=== PATIENT | female | born 1995 | race Hispanic/Latino ===

== ENCOUNTER 2016-07-17 13:29 | Emergency (ER) | payer OTHER ==
[~2016-07-17] VITALS: Ht 170.2 cm; Wt 114.6 kg
[2016-07-17 13:38] VITALS: BP 150/98
[2016-07-17] MEDS ORDERED: ATARAX,VISTARIL25 MG PO (21:33)
== END 2016-07-17 16:38 | disposition home or self-care (01) ==
LOC: EME 13:29
PROC: 3E0234Z Introduction of Serum, Toxoid and Vaccine into Muscle, Percutaneous Approach (ICD-10-PCS; principal; 2016-07-17)
DX: H18.822 Corneal disorder due to contact lens, left eye (principal); H11.32 Conjunctival hemorrhage, left eye; Z23 Encounter for immunization
CPT/HCPCS: 99281; 99284

== ENCOUNTER 2016-07-17 19:46 | Emergency (ER) | payer OTHER ==
[~2016-07-17] VITALS: Ht 167.6 cm; Wt 114.1 kg
[2016-07-17] MEDS ORDERED: ATARAX,VISTARIL25 MG PO (21:33)
[2016-07-17 21:50] LABS: HEMATOCRIT 38.7 % (36.0-46.0); MCH 27.1 PG (29.0-34.0); MCHC 32.3 G/DL (30.0-36.0); MCV 83.9 FL (83-99); MEAN PLAT.VOLUME 8.4 uM^3 (9.5-12.4); PLATELET COUNT 494 K/uL (156-360); RBC DIS.WIDTH-CV 13.2 % (11.8-14.6); RBC DIS.WIDTH-SD 40.2 % (39-53); RED BLOOD COUNT 4.61 M/uL (3.80-5.20); WHITE BLOOD COUNT 16.6 K/uL (4.1-10.2)
[2016-07-17 21:58] VITALS: BP 128/91
[2016-07-17 22:01] LABS: CHLORIDE 105 mEq/L (99-109); POTASSIUM 3.8 mEq/L (3.7-5.4); SODIUM 139 mEq/L (136-147)
[2016-07-17 22:03] LABS: GLUCOSE 90 mg/dL (70-99)
[2016-07-17 22:05] LABS: ANION GAP 10 MEQ/L (2-14)
[2016-07-17 22:06] LABS: SERUM ETHYL ALCOHOL < 10 mg/dL
[2016-07-17 22:07] LABS: GFR ESTIMATE (CALCULATED) > 59 mL/min/
[2016-07-17 22:08] LABS: UREA NITROGEN (BUN) 9 mg/dL (9-23)
[2016-07-17 22:15] LABS: QUANTITATIVE HCG < 4.0 MIU/ML
== END 2016-07-17 22:15 | disposition home or self-care (01) ==
LOC: EME 19:46
PROVIDERS: Emergency Medicine
DX: F32.9 Major depressive disorder, single episode, unspecified (principal)
CPT/HCPCS: 80048; 84702; 85027; 90839; 99281; 99284; G0480; Q0177

== ENCOUNTER 2016-08-31 22:09 | Emergency (ER) | payer SELFPAY ==
[~2016-08-31] VITALS: Ht 165.1 cm; Wt 114.1 kg
[~2016-08-31 22:09] MED LIST: ATARAX,VISTARIL25 MG PO
[2016-08-31 22:51] LABS: INTERNAL CONTROL VALID? YES
[2016-08-31 23:00] LABS: AMPHETAMINE NEGATIVE (500 ng/mL); BARBITURATES NEGATIVE (200 ng/mL); BENZODIAZEPINES NEGATIVE (150 ng/mL); COCAINE NEGATIVE (150 ng/mL); INTERNAL CONTROLS VALID? YES; METHADONE NEGATIVE (200 ng/mL); METHAMPHETAMINE NEGATIVE (500 ng/mL); OPIATES (MORPHINE) NEGATIVE (100 ng/mL); OXYCODONE NEGATIVE (100 ng/mL); PHENCYCLIDINE NEGATIVE (25 ng/mL); PROPOXYPHENE NEGATIVE (300 ng/mL); THC CANNABINOIDS NEGATIVE (50 ng/mL); TRICYCLIC ANTIDEPRESSANTS NEGATIVE (300 ng/mL)
[2016-08-31 23:00] LABS: BASOPHIL COUNT 0.1 K/uL (0-0.1); EOSINOPHIL (%) 0.1 % (0-5); HEMATOCRIT 39.6 % (36.0-46.0); IMMATURE GRANULOCYTE (%) 0.6 % (0.0-0.7); IMMATURE GRANULOCYTE COUNT 0.1 K/uL; INSTRUMENT ABS NEUTROPHIL CT 17.5 K/uL; LYMPHOCYTE COUNT 1.6 K/uL (1.0-2.8); MCH 26.7 PG (29.0-34.0); MCHC 31.8 G/DL (30.0-36.0); MCV 83.9 FL (83-99); MEAN PLAT.VOLUME 8.8 uM^3 (9.5-12.4); MONOCYTE (%) 4.8 % (3-12); NEUTROPHIL (%) 86.6 % (45-76); NEUTROPHIL COUNT 17.5 K/uL (1.8-6.4); PLATELET COUNT 515 K/uL (156-360); RBC DIS.WIDTH-CV 13.2 % (11.8-14.6); RBC DIS.WIDTH-SD 40.2 % (39-53); RED BLOOD COUNT 4.72 M/uL (3.80-5.20); WHITE BLOOD COUNT 20.2 K/uL (4.1-10.2)
[2016-08-31] MEDS ORDERED: CORTISPORI200 DROPS/ BOTH EARS (23:06)
[2016-08-31 23:11] LABS: CHLORIDE 103 mEq/L (99-109); POTASSIUM 3.5 mEq/L (3.7-5.4); SODIUM 136 mEq/L (136-147)
[2016-08-31 23:12] LABS: GLUCOSE 99 mg/dL (70-99)
[2016-08-31 23:14] LABS: ANION GAP 9 MEQ/L (2-14)
[2016-08-31 23:15] LABS: SERUM ETHYL ALCOHOL < 10 mg/dL
[2016-08-31 23:16] LABS: GFR ESTIMATE (CALCULATED) > 59 mL/min/
[2016-08-31 23:18] LABS: UREA NITROGEN (BUN) 12 mg/dL (9-23)
[2016-08-31 23:19] LABS: SALICYLATE < 5.0 MG/DL (15-30)
[2016-08-31 23:29] VITALS: BP 123/85
== END 2016-09-01 00:20 | disposition home or self-care (01) ==
LOC: EME 22:09
PROVIDERS: Emergency Medicine
DX: F32.9 Major depressive disorder, single episode, unspecified (principal); S00.531A Contusion of lip, initial encounter; S90.811A Abrasion, right foot, initial encounter; S09.21XA Traumatic rupture of right ear drum, initial encounter; Y04.2XXA Assault by strike against or bumped into by another person, initial encounter; Y92.009 Unspecified place in unspecified non-institutional (private) residence as the place of occurrence of the external cause; F43.10 Post-traumatic stress disorder, unspecified; F41.9 Anxiety disorder, unspecified
CPT/HCPCS: 80048; 84703; 85025; 90837; 99281; 99284; G0480